=== PATIENT | female | born 1965 | race Caucasian/White ===

== ENCOUNTER 2018-03-30 16:08 | Observation (INO) ==
[2018-03-30] MEDS ORDERED: ONDANSETRON 4 MG/2 ML VIAL IV ONE ×2 (16:26→20:50)
[2018-03-30] MEDS ORDERED: 0.9 % SODIUM CHLORIDE 1,000 ML IV ONE (16:26)
--- NOTE | 2018-03-30 16:30 | Emergency Department Note ---
Abdominal Pain HPI - General Chief Complaint: Abdominal Pain Stated Complaint: RLQ pain Time Seen by Provider: 03/30/18 16:12 Source: patient Mode of arrival: ambulatory Limitations: no limitations - History of Present Illness HPI Narrative: Patient states she woke up yesterday morning with her right lower abdominal pain and the pain is been increasing in nature. Been trying to go back to work but during the time she is continued to have pain. She is having anorexia. Has nausea but there is been no vomiting. No diarrhea. No constipation no hematemesis no melena. No urgency frequency or dysuria. Denies any cough or feverTemperature is 97.6 the pulse is 85 respirations are 14 blood pressure 127/ 72 pulse ox is 97% s he rates the pain as a 10/23 - Related Data Home Medications Medication Instructions Recorded Confirmed imatinib 400 mg tablet 400 mg PO QDAY 30 Days #30 tab 08/03/16 03/30/18 Previous Rx's Medication Instructions Recorded fluoxetine 20 mg capsule 20 mg PO QDAY #30 cap 07/25/17 Allergies Allergy/AdvReac Type Severity Reaction Status Date / Time tramadol Allergy Unknown vomitting, Verified 05/02/17 11:18 head spinning Review of Systems All systems ED: reviewed and negative except as stated. Constitutional: Denies: fever, chills Gastrointestinal: Reports: as per HPI, abdominal pain, nausea, constipation. Denies: vomiting, diarrhea, hematochezia, melena, hematemesis, acid reflux, heart burn Genitourinary: Reports: as per HPI. Denies: dysuria, urgency, frequency, hematuria Musculoskeletal: Denies: back pain, joint swelling, joint pain Integumentary: Denies: rash Neurological: Denies: headache Abdominal Pain PMH - Past Medical History [facility] Narrative: All Active Problems (Last Reviewed 05/02/17 @ 11:23 by Liz Farmer, DEANNA, FOOT PIECE ASSEMBLER ) Low back pain (Acute) Leukemia (Acute) Sciatica (Acute) Anemia (Acute) Fatigue (Acute) Perioral dermatitis (Acute) Back pain (Acute) Elevated serum creatinine (Acute) Elevated liver enzymes (Acute) Ingrown hair (Acute) Anxiety (Chronic) Insomnia (Chronic) Nausea (Chronic) Normochromic normocytic anemia (Chronic) Chronic myeloid leukemia (Chronic) Hip pain, bilateral (Acute) Joint pain (Acute) Migraine headache (Chronic) Hypertriglyceridemia (Chronic) Factor V Leiden mutation (Chronic) H/O colonoscopy (Chronic) Migraine (Chronic) Chronic joint pain (Chronic) Arthritis of knee (Chronic) Past Surgical History (Last Reviewed 05/02/17 @ 11:23 by Liz Farmer, DEANNA, NARAYAN) H/O colonoscopy (Chronic) H/O carpal tunnel repair (Resolved) H/O knee surgery (Resolved) Hx of tonsillectomy (Resolved) Family History (Last Reviewed 05/02/17 @ 11:23 by Liz Farmer, DEANNA, NARAYAN) Grandfather-maternal Malignant neoplasm of prostate Myocardial Infarction Mother Dementia Hypertension Cerebrovascular accident Factor V Leiden mutation Father Atrial fibrillation, Onset Age: 69 Medical history: Reports: cancer (Leukemia diagnosed in 2016), other (factor V deficiency) - Social History Smoking status: Never smoker Alcohol use: Reports: None Drug use: Reports: none Physical Exam Limitations: no limitations General appearance: alert Head: atraumatic Eye: Present: normal appearance, PERRL ENT: normal exam, normal oropharynx, mucous membranes moist Neck: Present: normal inspection, full ROM Chest: Present: normal inspection, symmetric chest wall rise. Absent: tenderness Respiratory: Present: normal lung sounds bilaterally. Absent: respiratory distress, rales/crackles, wheezes Cardiovascular: Present: regular rate, normal rhythm, normal heart sounds. Absent: bradycardia, tachycardia, irregular rhythm Abdominal: Present: soft, tenderness, guarding, rebound, normal bowel sounds, tenderness at McBurney's Point. Absent: distention, rigidity Abdominal tenderness: Present: RLQ Extremities: Present: normal inspection, full ROM. Absent: tenderness Back: Present: normal inspection, full ROM. Absent: tenderness Neurological: Present: alert, oriented X3, CN II-XII intact Psychiatric: Present: normal affect, normal mood Course Vital Signs Temperature 97.6 F 03/30/18 16:09 Pulse Rate 85 03/30/18 16:09 Respiratory Rate 14 03/30/18 16:09 Blood Pressure 127/72 03/30/18 16:09 Pulse Oximetry (%) 97 03/30/18 16:09 Temperature 97.6 F 03/30/18 16:09 Pulse Rate 85 03/30/18 16:09 Respiratory Rate 14 03/30/18 16:09 Blood Pressure 127/72 03/30/18 16:09 Pulse Oximetry (%) 97 03/30/18 16:09 Abdominal Pain - MDM Narrative Medical decision making narrative: WBC is 9700 hemoglobin 12.1 hematocrit 35.0 sodium is 140 potassium 3.9 the BUN is 10 creatinine 1.0 liver function tests are normal the lipase is [address] of the abdomen reveal acute appendicitis 12 mm in size within a appendicolith Dr. Mireles contacted patient to be admitted started on Zosyn and pain medications n.p.o. after midnight - Lab Data Result diagrams: 03/30/18 16:50 03/30/18 16:50 Lab Results 03/30/18 03/30/18 03/30/18 Range/Units 16:50 16:50 17:53 WBC 9.7 (4.5-11.0) K/mcL RBC 3.52 L (4.00-5.20) M/mcL Hgb 12.1 (12.0-15.0) g/dL Hct 35.0 L (36.0-48.0) % POC Hct 33.0 L (36.0-48.0) % MCV 99.5 (80.0-100.0) fL MCH 34.4 H (26.0-34.0) pg MCHC 34.6 (31.0-36.0) g/dL RDW 12.9 (11.5-14.5) % Plt Count 142 (140-440) K/mcL MPV 7.9 (7.4-10.4) fL Gran % 78.0 (38.0-78.0) % Lymph % (Auto) 16.1 (15.5-49.0) % [place] % (Auto) 5.4 (1.0-12.0) % Eos % (Auto) 0.3 (0.0-7.0) % Baso % (Auto) 0.2 (0.0-2.0) % Gran # 7.6 (1.8-8.0) K/mcL Lymph # (Auto) 1.6 (1.5-4.8) K/mcL [place] # (Auto) 0.5 (0.1-0.9) K/mcL Eos # (Auto) 0 (0.0-0.7) K/mcL Baso # (Auto) 0 (0.0-0.3) K/mcL POC Sodium 140 (133-145) mmol/L Sodium 138 (133-145) mmol/L POC Potassium 3.7 (3.3-5.1) mmol/L Potassium 3.9 (3.3-5.1) mmol/L POC Chloride 105 (96-108) mmol/L Chloride 102 (96-108) mmol/L Carbon Dioxide 21 L (22-30) mmol/L POC Total CO2 24 (22-30) mmol/L Anion Gap 15.0 (8-16) POC BUN 9 (6-20) mg/dl BUN 10 (6-20) mg/dl Creatinine 1.1 (0.6-1.1) mg/dl POC Creatinine 1.0 (0.6-1.1) mg/dl GFR Calculation 57 Glucose 87 (70-105) mg/dL POC Glucose 90 (70-105) mg/dL Calcium 9.6 (8.6-10.4) mg/dl POC WB Ioniz Calcium 1.12 L (1.16-1.32) mmol/L Total Bilirubin 0.9 (0.0-1.0) mg/dL AST 17 (0-37) U/l ALT 10 (0-40) U/l Alkaline Phosphatase 73 (39-117) U/L Total Protein 7.0 (5.9-8.4) gm/dL Albumin 4.3 (3.2-5.2) gm/dL Globulin 2.7 (2.2-3.7) gm/dL Albumin/Globulin Ratio 1.6 (1.0-2.3) Lipase 17 (7-60) U/L Urine Color Straw Urine Appearance Clear Urine pH 8.0 (5.0-9.0) Ur Specific [place] 1.006 (1.000-1.035) Urine Protein Neg (NEG) mg/dL Urine Glucose (UA) Negative (NEG) mg/dL Urine Ketones 5/tr A (NEG) mg/dL Urine Occult Blood Neg (<0.03) mg/dL Urine Nitrate Neg (NEG) Urine Bilirubin Neg (NEG) mg/dL Urine Urobilinogen Neg (NEG) mg/dL Ur Leukocyte Esterase 25 A (NEG) /uL Urine RBC < 1 (0-1) /hpf Urine WBC 1 (0-4) /hpf Ur Squamous Epith Cells 2 (0-4) /hpf Ur Transition Epith Cell < 1 (0-2) /hpf Urine Bacteria Few A (0) /hpf Urine Mucus Few (0) /hpf Ur Culture Indicated? Yes Disposition Pt seen by WALLPAPER PRINTER/PA only: No Clinical Impression: Acute appendicitis Qualifiers: Appendicitis perforation presence: without perforation Appendicitis abscess presence: without abscess Disposition: Xfer As Inpt ([facility]) Condition: Fair Referrals: Liz Farmer, DEANNA, FOOT PIECE ASSEMBLER [Primary Care Provider] - Time of Disposition: 19:42
[2018-03-30 17:44] LABS: Basophils # (Auto) 0 K/mcL (0.0-0.3); Basophils % (Auto) 0.2 % (0.0-2.0); Eosinophils # (Auto) 0 K/mcL (0.0-0.7); Eosinophils % (Auto) 0.3 % (0.0-7.0); Lymphocytes # (Auto) 1.6 K/mcL (1.5-4.8); Lymphocytes % (Auto) 16.1 % (15.5-49.0); Mean Cell Volume 99.5 fL (80.0-100.0); Mean Corpuscular HGB Conc 34.6 g/dL (31.0-36.0); Mean Corpuscular Hemoglobin 34.4 pg (26.0-34.0); Monocytes # (Auto) 0.5 K/mcL (0.1-0.9); Monocytes % (Auto) 5.4 % (1.0-12.0); Platelet Count 142 K/mcL (140-440); RBC 3.52 M/mcL (4.00-5.20); Red Cell Distribution Width 12.9 % (11.5-14.5)
[2018-03-30 18:05] LABS: ALT/SGPT 10 U/l (0-40); Albumin 4.3 gm/dL (3.2-5.2); Albumin/Globulin Ratio 1.6 (1.0-2.3); Alkaline Phosphatase 73 U/L (39-117); Blood Urea Nitrogen 10 mg/dl (6-20); Lipase 17 U/L (7-60)
[2018-03-30 18:49] LABS: Appearance,Urine CLEAR; Bacteria,Urine FEW /hpf (0); Bilirubin,Urine NEG (NEG); Color,Urine STRAW; Glucose,Urine (UA) NEGATIVE (NEG); Leukocyte Esterase,Urine 25 /uL (NEG); Mucus,Urine FEW /hpf (0); Protein,Urine NEG (NEG); Specific Gravity,Urine 1.006 (1.000-1.035); Urine Blood NEG mg/dL (<0.03); Urine RBC < 1 /hpf (0-1); Urine Squamous Epithelial Cell 2 /hpf (0-4); Urine Transitional Epi Cells < 1 /hpf (0-2); Urine WBC 1 /hpf (0-4); Urobilinogen,Urine NEG (NEG)
[2018-03-30] MEDS ORDERED: PIPERACILLIN SODIUM/TAZOBACTAM 3.375 GM in DEXTROSE 5% IN WATER 50 ML IV ONE (19:35)
[2018-03-30] MEDS ORDERED: ONDANSETRON 4 MG/2 ML VIAL IV PRN (19:39)
[2018-03-30] MEDS ORDERED: ONDANSETRON 4 MG/2 ML VIAL ONE (20:53)
[2018-03-30] MEDS: 0.9 % SODIUM CHLORIDE 1,000 ML IV SCH (21:50)
[2018-03-31] MEDS: PIPERACILLIN SODIUM/TAZOBACTAM 3.375 GM in DEXTROSE 5% IN WATER 50 ML IV SCH ×4 (01:47→20:43)
[2018-03-31] MEDS: 0.9 % SODIUM CHLORIDE 1,000 ML IV SCH ×2 (09:28→21:55)
--- NOTE | 2018-03-31 10:03 | General Surg History&Physical ---
History of Present Illness Patient information: Note initiated : 03/31/18 at 10:01 am Service Date, if different from initiated Date: [] Patient: Feliberto Holliday a 53 y/o F admitted on 03/30/18 for RLQ pain. Chief Complaint: [] HPI: Ms. Holliday is a 53 year old F admitted with acute appendicitis. The patient had onset of midabdominal pain on midday on Tuesday. The pain persisted and then on it localized to the right lower quadrant. She developed anorexia and nausea and vomiting. She did not have fever chills or diarrhea. She was seen in the emergency room with findings of right lower quadrant tenderness. CT scan confirms a dilated appendix with appendicolith and periappendiceal tissue edema. Patient is admitted and is counseled for laparoscopic appendectomy. Review of Systems - Constitutional headache(s) - Cardiovascular no chest pain at rest, no dyspnea on exertion, no palpatations, no rapid heart rate - Respiratory no cough, no dyspnea on exertion, no wheezing - Gastrointestinal abdominal pain, bloating, cramping, nausea, vomiting - Genitourinary Genitourinary: no dysuria, no nocturia, no urinary frequency, no urinary incontinence - Musculoskeletal arthralgias, back pain, stiffness - Integumentary no new lesions, no pruritus, no rash - Neurological no convulsions, no headache(s), no memory loss, no syncope - Psychiatric depression - Endocrine no fatigue, no palpitations, no polydipsia, no polyphagia, no polyuria - Hematologic/Lymphatic no easy bleeding, no easy bruising, no lymphadenopathy - Allergic/Immunologic no tongue swelling, no throat swelling, no uticaria, no wheezing, no lip swelling Past History Past medical history: CHRONIC MYELOGENOUS LEUKEMIA ON GLEEVEC FACTOR V LEIDEN MUTATION MIGRAINE DJD CHRONIC ANEMIA Past surgical history: RIGHT CARPAL TUNNEL RELEASE L5-S1 DISCECTOMY MENISECTOMY;RIGHT Past family history: CAD PROSTATE CANCER HTN STROKE FACTOR V LEIDEN MUTATION Past social history: SINGLE EMPLOYED NEVER SMOKER OCCASIONAL ALCOHOL USE DENIES DRUGS Medications and Allergies Home Medications Medication Instructions Recorded Confirmed Type imatinib 400 mg tablet 400 mg PO QDAY 30 Days #30 tab 08/03/16 03/31/18 History fluoxetine 20 mg capsule 20 mg PO QDAY #30 cap 07/25/17 03/31/18 Rx Allergies Allergy/AdvReac Type Severity Reaction Status Date / Time tramadol Allergy Unknown vomitting, Verified 05/02/17 11:18 head spinning Exam Temp Pulse Resp BP Pulse Ox 98.6 F 72 16 106/64 95 03/31/18 06:32 03/31/18 03:30 03/31/18 06:32 03/31/18 06:32 03/31/18 06:32 - General physical appearance well developed, well nourished, no distress, moderate pain, obese - Eyes PERRL, normal ocular movement - ENT normal pinna, normal nares, normal mucosa, no hearing loss, no congestion - Head Head exam IM: Present: atraumatic, normocephalic - Neck no masses, no bruits, trachea midline, no lymphadenopathy, no venous distension - Cardiovascular Cardiovascular exam IM: Present: normal rate and rhythm - Respiratory normal expansion, normal respiratory effort, clear to percussion, clear to auscultation - Abdomen Abdomen: Present: soft, tender (TENDERNESS WITH GUARDING IN RLQ AND SUPRAPUBIC AREA), bowel sounds Hernia: Present: none - Genitourinary Present: normal external genitalia - Integumentary Present: no rash, no growths, no abnormal pigmentation - Neurologic Present: normal coordination, normal sensation - Musculoskeletal Present: normal gait, normal posture - Psychiatric Present: oriented to time, oriented to person, oriented to place, speech is normal, memory intact Assessment and Plan (1) Acute appendicitis NPO SCHEDULE FOR APPENDECTOMY LATER TODAY ZOSYN 3.375 GM IV Q6H Status: Acute Qualifiers: Appendicitis perforation presence: without perforation Appendicitis abscess presence: without abscess (2) Low back pain Will treat symptomatically and continue home meds as needed Status: Acute Qualifiers: Chronicity: acute Back pain laterality: unspecified Sciatica presence: with sciatica Sciatica laterality: bilateral sciatica Qualified Code(s): M54.42 - Lumbago with sciatica, left side; M54.41 - Lumbago with sciatica, right side (3) Chronic myeloid leukemia Will continue on Gleevec after the appendectomy is completed Status: Chronic (4) Factor V Leiden mutation no history ofdeep venous thrombosis or embolism Status: Chronic Comment: heterozygous for [id number] gene mutation, no history of abnormal clotting (5) Chronic joint pain Status: Chronic Comment: knees bilateral; no previous workup, but was told at age 35 and was told that she "had the knees of a 65 year old"; pain with ambulation, improves after small amounts of exercise, walking uphill is no problem, but downward incline is impossible.
[2018-03-31] MEDS ORDERED: SCOPOLAMINE 1 PATCH PATCH TOPICAL ONE (15:26)
[2018-03-31] MEDS ORDERED: ROCURONIUM 10 MG/ML ML IV ONE (15:47)
[2018-03-31] MEDS ORDERED: GLYCOPYRROLATE 0.2 MG/ML VIAL IV ONE (15:47)
[2018-03-31] MEDS ORDERED: DEXAMETHASONE 10 MG/ML VIAL ONE (15:47)
[2018-03-31] MEDS ORDERED: KETAMINE 10 MG/ML ML ONE (15:47)
[2018-03-31] MEDS ORDERED: LIDOCAINE HCL/PF 100 MG/5 ML SYRINGE IV ONE (15:47)
[2018-03-31] MEDS ORDERED: fentaNYL 100 MCG/2 ML VIAL IV ONE (15:47)
[2018-03-31] MEDS ORDERED: MIDAZOLAM 5 MG/5 ML VIAL ONE (15:47)
[2018-03-31] MEDS ORDERED: PROPOFOL 200 MG/20 ML VIAL IV ONE (15:47)
[2018-03-31] MEDS ORDERED: NEOSTIGMINE 1 MG/ML VIAL ONE (15:47)
[2018-03-31] MEDS ORDERED: SUCCINYLCHOLINE 20 MG/ML ML IV ONE (15:47)
[2018-03-31] MEDS ORDERED: ONDANSETRON 4 MG/2 ML VIAL ONE (15:47)
[2018-03-31] MEDS ORDERED: FLUMAZENIL 0.1 MG/ML ML IV PRN (16:25)
[2018-03-31] MEDS ORDERED: METHOCARBAMOL 1,000 MG/10 ML VIAL IV PRN (16:25)
[2018-03-31] MEDS ORDERED: IPRATROPIUM/ALBUTEROL 3 ML AMPUL.NEB NEB PRN (16:25)
[2018-03-31] MEDS ORDERED: PROMETHAZINE 25 MG/ML VIAL IM PRN (16:25)
[2018-03-31] MEDS ORDERED: NALOXONE HCL 0.4 MG/ML VIAL IV PRN (16:25)
[2018-03-31] MEDS ORDERED: fentaNYL 100 MCG/2 ML VIAL IV PRN (16:25)
[2018-03-31] MEDS ORDERED: BENZOCAINE/MENTHOL 1 LOZENGE PO PRN (16:25)
[2018-03-31] MEDS ORDERED: MEPERIDINE 25 MG/ML SYRINGE IV PRN ×2 (16:25→17:43)
[2018-03-31] MEDS ORDERED: MEPERIDINE 50 MG/ML INJECTION IM PRN (16:25)
[2018-03-31] MEDS ORDERED: ACETAMINOPHEN 1,000 MG/100 ML BOTTLE IV ONE (16:25)
[2018-03-31] MEDS ORDERED: HYDROmorphone 2 MG/ML VIAL IV PRN (16:25)
[2018-03-31] MEDS ORDERED: LACTATED RINGERS 250 ML IV PRN (16:25)
[2018-03-31] MEDS ORDERED: LACTATED RINGERS 1,000 ML IV SCH (16:30)
--- NOTE | 2018-03-31 16:40 | Brief Operative Note ---
Date of procedure: 03/31/18 Pre-op diagnosis: acute appendicitis Post-op diagnosis: other (acute appendicitis) Procedure: LAPAROSCOPIC APPENDECTOMY Grafts/Implants: No Anesthesia: GETA Findings: ACUTE SUPPURATIVE APPENDICITIS Complications: none Surgeon: Elroy Mireles Estimated blood loss (cc): 10 Specimens Removed/Pathology: other (APPENDIX) Condition: stable Disposition: PACU
[2018-03-31] MEDS: PROMETHAZINE 25 MG/ML VIAL IV PRN ×2 (17:00→17:20)
[2018-03-31] MEDS ORDERED: 0.9 % SODIUM CHLORIDE 1,000 ML IV SCH (17:43)
[2018-03-31] MEDS ORDERED: ONDANSETRON 4 MG/2 ML VIAL IV PRN (17:43)
[2018-03-31] MEDS ORDERED: ACETAMINOPHEN 1,000 MG/100 ML BOTTLE IV PRN (17:43)
[2018-03-31] MEDS: PANTOPRAZOLE 40 MG VIAL IV SCH (18:51)
[2018-03-31] MEDS ORDERED: PANTOPRAZOLE 40 MG VIAL IV ONE (18:53)
[2018-04-01] MEDS: PIPERACILLIN SODIUM/TAZOBACTAM 3.375 GM in DEXTROSE 5% IN WATER 50 ML IV SCH ×2 (00:42→05:48)
[2018-04-01] MEDS: 0.9 % SODIUM CHLORIDE 1,000 ML IV SCH ×2 (00:44→11:28)
[2018-04-01] MEDS: PANTOPRAZOLE 40 MG VIAL IV SCH (07:05)
[2018-04-01 08:56] LABS: Basophils # (Auto) 0 K/mcL (0.0-0.3); Basophils % (Auto) 0 % (0.0-2.0); Eosinophils # (Auto) 0 K/mcL (0.0-0.7); Eosinophils % (Auto) 0 % (0.0-7.0); Granulocytes % (Auto) 90.1 % (38.0-78.0); Lymphocytes # (Auto) 0.5 K/mcL (1.5-4.8); Lymphocytes % (Auto) 6.9 % (15.5-49.0); Mean Cell Volume 99.9 fL (80.0-100.0); Mean Corpuscular HGB Conc 34.4 g/dL (31.0-36.0); Mean Corpuscular Hemoglobin 34.4 pg (26.0-34.0); Monocytes # (Auto) 0.2 K/mcL (0.1-0.9); Platelet Count 128 K/mcL (140-440); RBC 3.26 M/mcL (4.00-5.20); Red Cell Distribution Width 12.9 % (11.5-14.5)
[2018-04-01 09:11] LABS: ALT/SGPT 10 U/l (0-40); Albumin/Globulin Ratio 1.7 (1.0-2.3); Alkaline Phosphatase 61 U/L (39-117); Bilirubin,Direct < 0.2 mg/dL (0.0-0.3); Blood Urea Nitrogen 12 mg/dl (6-20); Gamma Glutamyl Transpeptidase 15 U/L (5-36)
--- NOTE | 2018-04-01 12:59 | Discharge Summary ---
Providers - Providers Patient information: Note initiated : 04/01/18 at 12:57 pm Service Date, if different from initiated Date: [] Patient: Feliberto Holliday 53 y/o F admitted on 03/30/18 for RLQ pain. Chief Complaint: [] Date of admission: 03/30/18 Discharge date: 04/01/18 Attending physician: Elroy Mireles Hospitalization Hospital course: 53-year-old female admitted with a 2 day history of right lower quadrant pain.. She had confirmed appendicitis.. Laparoscopic appendectomy was done on 31 March.. She has done well and has no complaints.. She denies significant abdominal pain.. She is stable for discharge.. Discharge diagnosis: acute appendicitis Secondary discharge diagnosis: Chronic myeloid leukemia on Gleevec factor 5 Leiden mutation Chronic anemia Reason for admission: abdominal pain nausea and vomiting Procedures: Laparoscopic appendectomy Pertinent studies/significant findings: CT of abdomen and pelvis with IV contrast Complications: None Exam Temp Pulse Resp BP Pulse Ox 98.7 F 55 L 20 149/84 97 04/01/18 06:46 04/01/18 03:20 04/01/18 06:46 04/01/18 06:46 04/01/18 06:46 - General physical appearance well developed, well nourished, no distress - Eyes PERRL, normal ocular movement - ENT normal pinna, normal nares, normal mucosa, no hearing loss, no congestion - Head Head exam IM: Present: atraumatic, normocephalic - Neck no masses, no bruits, trachea midline, no lymphadenopathy, no venous distension - Cardiovascular Cardiovascular exam IM: Present: normal rate and rhythm - Respiratory normal expansion, normal respiratory effort, clear to percussion, clear to auscultation - Abdomen Abdomen: Present: soft, tender ( mild tenderness around the operative site), bowel sounds Hernia: Present: none - Genitourinary Present: normal external genitalia - Integumentary Present: no rash, no growths, no abnormal pigmentation - Neurologic Present: normal coordination, normal sensation - Musculoskeletal Present: normal gait, normal posture - Psychiatric Present: oriented to time, oriented to person, oriented to place, speech is normal, memory intact Discharge Plan - Patient/Caregiver Discharge Instructions Activity: increase activity as tolerated Diet: Regular Diet Additional Instructions: Keep dressings intact until your return to the office Increase activity as tolerated Call office on Tuesday for appointment in 2 weeks - Follow up Plan Follow up with: Liz Farmer, DEANNA, PROTECTIVE SIGNAL INSTALLER [Primary Care Provider] - Disposition: Home, Self-Care Prognosis: Good Rehab Potential: Good I certify that the patient requires SNF services.: No Overall status at discharge: patient is progressing back to baseline Pending Studies Resuscitation Status Full Code Diet Full Liquid Diet Start TueMar 31 170 Piperacillin Sod/Tazobactam (Sod 3.375 gm/ Dextrose) 50 mls @ 100 mls/hr IV Q6H [facility] Last Infusion: 04/01/18 06:33 Dose: 0 mls/hr Admin: 04/01/18 05:48 Dose: 100 mls/hr Infusion: 04/01/18 01:12 Dose: 100 mls/hr Admin: 04/01/18 00:42 Dose: 100 mls/hr Infusion: 03/31/18 21:13 Dose: 100 mls/hr Admin: 03/31/18 20:43 Dose: 100 mls/hr Sodium Chloride (Sodium Chloride 0.9%) 1,000 mls @ 75 mls/hr IV .[id number] [facility] Last Admin: 04/01/18 11:28 Dose: Admin: 04/01/18 00:44 Dose: Morphine Sulfate (Morphine) 2 mg IV Q2HP PRN PRN Reason: PAIN LEVEL > 6 Last Admin: 04/01/18 02:34 Dose: 2 mg Pantoprazole Sodium (Protonix) [address] [facility] Last Admin: 04/01/18 07:05 Dose: 40 mg Admin: 03/31/18 18:51 Dose: 40 mg Shift Summary 04/01/18 04:13 Shift Summary by Deyvi Allan Addendum entered by Deyvi Allan 04/01/18 04:24: VS- returning to baseline - [facility]. [facility] @ 55, B/P sl low @ 108/57 - all else WNL on R.A.. Original Note: Pt rested fairly well tonight. Up AMB in RM & in siddiqi (I) - gait stable w/o device. She is voiding, yet PVR scans have been greater than 200ml - last was 207ml @ 0330, after a void of 1000ml. ABD lap site x3 w/ ariana & Tegaderm - no drainage. She has denied sig. pain through most of the shift - ABD pain up to 12/23 @ 0230 - morphine 2mg IV given @ that time - good relief after a few minutes. Taking clear liquids w/o nausea. NS @ 75ml/hr infusing to her LT hand. She is A&Ox4, calm, pleasant, & cooperative. Looking forward to D/C later today. Initialized on 04/01/18 04:13 - END OF NOTE
--- NOTE | 2018-04-03 13:50 | Surgical Pathology Report ---
HISTOLOGY SPECIMEN MICROSCOPIC DIAGNOSIS APPENDIX, APPENDECTOMY: -- ACUTE APPENDICITIS WITH SEROSITIS. (DMT:adj) PROCEDURAL IMPRESSION Acute appendicitis. GROSS DESCRIPTION Received in formalin labeled appendix, is a 5.5 cm long by up to 1.1 cm in diameter pink to red-stallings appendix with 3 cm of attached yellow-stallings adipose tissue. The margin is stapled closed and the staple line extends 3 cm into the attached adipose tissue. Approximately 3 cm from the staple line is a 1 cm long area where the surface appears disrupted. Grossly no definite perforations are identified. The lumen contains a minimal amount of thickened red-stallings material. Cushion Worker sections submitted - one cassette. (STS:adj) Electronically Signed by: Shawn Garner M.D.
--- NOTE | 2018-04-03 14:04 | Operative Note ---
DATE OF OPERATION: 03/31/2018 PREOPERATIVE DIAGNOSIS: Acute appendicitis. POSTOPERATIVE DIAGNOSIS: Acute appendicitis. PROCEDURE: Laparoscopic appendectomy. SURGEON: Elroy Mireles MD FINDINGS: Acute suppurative appendicitis. DESCRIPTION OF PROCEDURE: Under general anesthesia, the patient's abdomen was prepped and draped in a sterile field. Supraumbilical incision was made and Veress needle was inserted uneventfully. Abdomen was insufflated with 2 liters of CO2. A 12 mm port was placed. Laparoscope was placed. The patient was positioned in deep Trendelenburg position and rotated to the left. Under videoscopic guidance, a 5 mm port was placed in the suprapubic midline and the 12 mm port was placed in the right lower quadrant. The appendix was found in the lateral gutter close to the pelvic sidewall. It was grasped with a self-retaining grasper and positioned. A window was made in the mesoappendix at the base of the appendix. Through this window, the Endo-PAVAN stapler was placed and the appendiceal base was stapled. Next, the mesoappendix was stapled using two fires of the PAVAN stapler. The appendix was placed in an Endopouch and retrieved. Inspection revealed slight oozing from the mesoappendix staple line. This was controlled with electrocautery and multiple clips. The last irrigation did not reveal any bleeding. There was no major purulence noted. CO2 was allowed to escape from the abdomen and the ports were removed. Fascia at the umbilicus was closed with 0 Vicryl. The skin incisions were closed with ariana. The patient tolerated the procedure well. She was awakened and transferred to a bed and taken to the postanesthetic care unit in stable, satisfactory condition. LCS:farrukh Job ID: [id number] Doc ID: [id number] Elroy Mireles M.D.
== END 2018-04-01 13:25 | disposition home or self-care (01) ==
LOC: ED 16:08 → MEDSUR 21:26 → INTOOBSV 21:26 → MEDSUR 21:30
PROVIDERS: ADMIT Family Medicine Adult Medicine; ATTEND Family Medicine Adult Medicine
PROC: LAPAPPY (ICD-10-PCS; 2018-03-31 15:47)
CPT/HCPCS: 44970; 80047; 85014; 99219; J0131; J0330; J1100; J2001; J2250; J2405; J2543; J2550; J2710; J3010; J7030; J7060; J7120; Q9967